=== PATIENT | female | born 1955 | race Caucasian/White ===

== ENCOUNTER → 2023-06-16 06:33 | Day surgery (SDC) | payer OTHER, SELFPAY | LOC: GI 06:33 | PROVIDERS: ATTENDING PHYSICIAN Internal Medicine | DX: K62.1 Rectal polyp (principal); K64.8 Other hemorrhoids; R19.4 Change in bowel habit; K29.50 Unspecified chronic gastritis without bleeding; K21.00 Gastro-esophageal reflux disease with esophagitis, without bleeding; K22.2 Esophageal obstruction; K44.9 Diaphragmatic hernia without obstruction or gangrene; R12 Heartburn | CPT/HCPCS: 45380; 43239; 88305; 88342 ==

== ENCOUNTER → 2024-03-07 15:23 | Outpatient (REF) | payer OTHER, SELFPAY | LOC: WDC 15:23 | PROVIDERS: ATTENDING PHYSICIAN Family Medicine | DX: Z12.31 Encounter for screening mammogram for malignant neoplasm of breast (principal) | CPT/HCPCS: 77063; 77067 ==